=== PATIENT | male | born 1940 | race Caucasian/White ===

== ENCOUNTER 2019-03-15 15:44 | Inpatient (IN) | payer OTHER ==
[~2019-03-15] VITALS: Ht 175.3 cm; Wt 53.3 kg
[2019-03-15] MEDS ORDERED: Magnesium 1GM/D5W 100ML PREMIX 200 ML IV ONE (15:47)
[2019-03-15] MEDS ORDERED: ALBUTEROL FS 2.5 MG/3 ML VIAL.NEB ONE (15:54)
[2019-03-15] MEDS ORDERED: IPRATROPIUM NEB FS 0.5 MG/2.5 ML AMPUL.NEB ONE (15:54)
[2019-03-15] MEDS ORDERED: ALBUTEROL FS 2.5 MG/3 ML VIAL.NEB CONTNEB ONE (16:00)
[2019-03-15] MEDS ORDERED: IPRATROPIUM NEB FS 0.5 MG/2.5 ML AMPUL.NEB NEB ONE (16:00)
[2019-03-15] MEDS ORDERED: Magnesium 1GM/D5W 100ML PREMIX 100 ML IV ONE ×2 (16:09)
[2019-03-15 16:12] LABS: BASOPHILS % (AUTO) 0.2 % (0.0-2.0); EOSINOPHILS % (AUTO) 0.5 % (0.0-6.0); HEMATOCRIT 42 % (39-51); HEMOGLOBIN 13.8 g/dL (13.5-17.5); LYMPHOCYTES # (AUTO) 0.8 /CMM (0.8-4.8); LYMPHOCYTES % (AUTO) 10.2 % (20.0-44.0); MEAN CORPUSCULAR HGB CONC 33 g/dl (31.0-36.0); MEAN CORPUSCULAR VOLUME 88 fL (80-96); MONOCYTES # (AUTO) 0.3 /CMM (0.1-1.30); MONOCYTES % (AUTO) 3.5 % (2.0-12.0); NEUTROPHILS % (AUTO) 85.6 % (43.0-81.0); PLATELET COUNT (AUTO) 156 /CMM (150-450); RED BLOOD CELL COUNT(AUTO) 4.77 MIL/uL (4.5-6.0); WHITE BLOOD COUNT (AUTO) 8.2 K/uL (4.3-11.0)
[2019-03-15 16:25] LABS: CARBON DIOXIDE 27 mmol/L (21-32); CHLORIDE 100 mmol/L (98-107); CREATININE 1.4 mg/dL (0.6-1.3); GLUCOSE 150 mg/dL (74-106); POTASSIUM 4.3 mmol/L (3.5-5.1); SODIUM SERUM 134 mmol/L (136-145); UREA NITROGEN, BLOOD 29 mg/dL (7-18)
[2019-03-15 16:38] LABS: B-TYPE NATRIURETIC PEPTIDE 838 PG/ML (0-125)
[2019-03-15] MEDS ORDERED: IRBE150T28 PO (17:32)
[2019-03-15] MEDS ORDERED: ASPI-605 PO (17:32)
[2019-03-15] MEDS ORDERED: ALBU8.5H8 IH (17:32)
[2019-03-15] MEDS ORDERED: FLUT1BLS6 IH (17:32)
[2019-03-15] MEDS ORDERED: METO25TA4 PO (17:32)
[2019-03-15] MEDS ORDERED: LEVO750T46 PO (17:32)
[2019-03-15 19:19] LABS: BILIRUBIN,DIRECT 0.2 mg/dL (0.0-0.2); BILIRUBIN,TOTAL 0.4 mg/dL (0.2-1.0)
[2019-03-15 20:15] LABS: ABG BASE EXCESS 0.9 mmol/L; ABG OXYGEN SATURATION 92.4 % (92.0-98.5); ABG PCO2 38.6 mmHg (35.0-45.0); ABG PH 7.431 (7.350-7.450); ABG PO2 60.3 mmHg (75.0-100.0); AaDO2 93.8 mmHg; COHb 0.5 % (0.5-1.5); MetHb 0.4 % (0.0-1.5); O2Hb 91.6 % (94.0-97.0); SITE, ABG Left Radial; VENT MODE, BG N/C 28%
[2019-03-15 21:30] VITALS: BP 134/67
[2019-03-15 22:00] VITALS: BP 134/67
[2019-03-15] MEDS ORDERED: ALBUTEROL FS 2.5 MG/0.5 ML VIAL.NEB NEB PRN (22:00)
[2019-03-15] MEDS ORDERED: IV NS 0.9% 500 ML IV ONE (22:00)
[2019-03-15] MEDS ORDERED: IPRATROPIUM NEB FS 0.5 MG/2.5 ML AMPUL.NEB NEB PRN (22:00)
[2019-03-15] MEDS: methylPREDNISolone SOD SUCC 40 MG/ML VIAL IV SCH (23:17)
[2019-03-15] MEDS ORDERED: CEFTRIAXONE 1 G VIAL ONE (23:29)
[2019-03-15] MEDS: CEFTRIAXONE 1 G in IV D5W 50 ML IV SCH (23:33)
[2019-03-15] MEDS ORDERED: AZITHROMYCIN 500 MG VIAL ONE (23:56)
[2019-03-16] VITALS: BP 107/62
[2019-03-16] MEDS: AZITHROMYCIN 500 MG in IV D5W 250 ML IV SCH ×2 (00:53→22:08)
[2019-03-16] MEDS: ALBUTEROL FS 2.5 MG/0.5 ML VIAL.NEB NEB SCH ×4 (02:14→20:00)
[2019-03-16] MEDS: IPRATROPIUM NEB FS 0.5 MG/2.5 ML AMPUL.NEB NEB SCH ×4 (02:14→20:00)
[2019-03-16 04:00] VITALS: BP 130/66
[2019-03-16] MEDS: methylPREDNISolone SOD SUCC 40 MG/ML VIAL IV SCH ×3 (05:21→20:54)
[2019-03-16 05:22] LABS: EOSINOPHILS % (AUTO) 0.1 % (0.0-6.0); HEMATOCRIT 43 % (39-51); HEMOGLOBIN 13.9 g/dL (13.5-17.5); LYMPHOCYTES # (AUTO) 0.3 /CMM (0.8-4.8); LYMPHOCYTES % (AUTO) 4.4 % (20.0-44.0); MEAN CORPUSCULAR HGB CONC 33 g/dl (31.0-36.0); MEAN CORPUSCULAR VOLUME 87 fL (80-96); MONOCYTES # (AUTO) 0.1 /CMM (0.1-1.30); MONOCYTES % (AUTO) 2.1 % (2.0-12.0); NEUTROPHILS # (AUTO) 6.1 /CMM (1.8-8.9); NEUTROPHILS % (AUTO) 93.4 % (43.0-81.0); PLATELET COUNT (AUTO) 152 /CMM (150-450); WHITE BLOOD COUNT (AUTO) 6.5 K/uL (4.3-11.0)
[2019-03-16 05:34] LABS: CALCIUM, SERUM 8.4 mg/dL (8.5-10.1); CREATININE 1.2 mg/dL (0.6-1.3); POTASSIUM 4.3 mmol/L (3.5-5.1)
[2019-03-16 08:00] VITALS: BP 118/70
[2019-03-16] MEDS: ASPIRIN EC 81 MG TABLET.DR PO SCH (08:55)
[2019-03-16 16:00] VITALS: BP 146/83
[2019-03-16 20:00] VITALS: BP 140/76
[2019-03-16 20:39] VITALS: BP 140/76
[2019-03-16] MEDS: CEFTRIAXONE 1 G in IV D5W 50 ML IV SCH (21:25)
[2019-03-17] VITALS: BP 152/85
[2019-03-17] MEDS: IPRATROPIUM NEB FS 0.5 MG/2.5 ML AMPUL.NEB NEB SCH ×4 (00:47→13:44)
[2019-03-17] MEDS: ALBUTEROL FS 2.5 MG/0.5 ML VIAL.NEB NEB SCH ×4 (00:47→13:44)
[2019-03-17 04:05] VITALS: BP 140/70
[2019-03-17] MEDS: methylPREDNISolone SOD SUCC 40 MG/ML VIAL IV SCH ×2 (05:25→13:00)
[2019-03-17 07:34] LABS: HEMATOCRIT 43 % (39-51); HEMOGLOBIN 13.9 g/dL (13.5-17.5); LYMPHOCYTES # (AUTO) 0.4 /CMM (0.8-4.8); LYMPHOCYTES % (AUTO) 6.1 % (20.0-44.0); MEAN CORPUSCULAR HGB CONC 33 g/dl (31.0-36.0); MEAN CORPUSCULAR VOLUME 87 fL (80-96); MONOCYTES # (AUTO) 0.5 /CMM (0.1-1.30); MONOCYTES % (AUTO) 7.1 % (2.0-12.0); NEUTROPHILS # (AUTO) 5.8 /CMM (1.8-8.9); NEUTROPHILS % (AUTO) 86.8 % (43.0-81.0); PLATELET COUNT (AUTO) 182 /CMM (150-450); RED BLOOD CELL COUNT(AUTO) 4.89 MIL/uL (4.5-6.0); WHITE BLOOD COUNT (AUTO) 6.6 K/uL (4.3-11.0)
[2019-03-17 07:50] LABS: CALCIUM, SERUM 8.8 mg/dL (8.5-10.1); CREATININE 0.9 mg/dL (0.6-1.3); POTASSIUM 4.1 mmol/L (3.5-5.1)
[2019-03-17 08:00] VITALS: BP 146/89
[2019-03-17] MEDS: ASPIRIN EC 81 MG TABLET.DR PO SCH (08:39)
[2019-03-17] MEDS ORDERED: PRED20TA PO (09:24)
[2019-03-17] MEDS ORDERED: IPRA3AMP23 IH (09:35)
[2019-03-18] MEDS ORDERED: PRED5TAB48 PO (20:20)
== END 2019-03-17 15:30 | disposition home health service (06) | DRG 189 ==
LOC: ER 15:45 → TELE 20:37 → MED 03-17 00:19 → TELE 03-17 00:22 → MED 03-17 08:46
PROVIDERS: ADMIT Internal Medicine; ATTEND Internal Medicine
DX: J96.21 Acute and chronic respiratory failure with hypoxia (principal); J44.1 Chronic obstructive pulmonary disease with (acute) exacerbation; N17.9 Acute kidney failure, unspecified; E87.2 Acidosis; Z87.891 Personal history of nicotine dependence; R55 Syncope and collapse; I95.9 Hypotension, unspecified; I10 Essential (primary) hypertension
CPT/HCPCS: 36415; 36600; 71045-TC; 80048-TC; 82247-TC; 82248-TC; 82803-TC; 83605-TC; 83880; 84484-TC; 85025-TC; 87040-TC; 87081-TC; 93307-TC; 94799-TC; G0378; J0456; J0696; J2920; J3475; J7030; J7040; J7050; J7060

== ENCOUNTER 2019-03-18 18:12 | Inpatient (IN) | payer OTHER ==
[~2019-03-18] VITALS: Ht 175.3 cm; Wt 50.3 kg
[2019-03-18] VITALS (7 sets, daily range): BP systolic 81–143; BP diastolic 54–86
[~2019-03-18 18:12] MED LIST: ALBU8.5H8 IH; ASPI-605 PO; FLUT1BLS6 IH; IPRA3AMP23 IH; IRBE150T28 PO; LEVO750T46 PO; METO25TA4 PO; PRED20TA PO
[2019-03-18] MEDS ORDERED: Magnesium 1GM/D5W 100ML PREMIX 200 ML IV ONE ×2 (18:21→18:30)
[2019-03-18] MEDS ORDERED: ALBUTEROL FS 2.5 MG/3 ML VIAL.NEB ONE (18:26)
[2019-03-18] MEDS ORDERED: IPRATROPIUM NEB FS 0.5 MG/2.5 ML AMPUL.NEB ONE (18:26)
[2019-03-18 18:30] LABS: BASOPHILS % (AUTO) 0.3 % (0.0-2.0); EOSINOPHILS % (AUTO) 0.1 % (0.0-6.0); HEMATOCRIT 47 % (39-51); HEMOGLOBIN 15.3 g/dL (13.5-17.5); LYMPHOCYTES # (AUTO) 1.1 /CMM (0.8-4.8); LYMPHOCYTES % (AUTO) 10.1 % (20.0-44.0); MEAN CORPUSCULAR HGB CONC 33 g/dl (31.0-36.0); MEAN CORPUSCULAR VOLUME 88 fL (80-96); MONOCYTES # (AUTO) 0.7 /CMM (0.1-1.30); MONOCYTES % (AUTO) 6.6 % (2.0-12.0); NEUTROPHILS # (AUTO) 9.1 /CMM (1.8-8.9); NEUTROPHILS % (AUTO) 82.9 % (43.0-81.0); PLATELET COUNT (AUTO) 244 /CMM (150-450); RED BLOOD CELL COUNT(AUTO) 5.34 MIL/uL (4.5-6.0)
[2019-03-18] MEDS ORDERED: IPRATROPIUM NEB FS 0.5 MG/2.5 ML AMPUL.NEB NEB ONE (18:30)
[2019-03-18] MEDS ORDERED: methylPREDNISolone SOD SUCC 125 MG/2ML VIAL ONE (18:30)
[2019-03-18] MEDS ORDERED: methylPREDNISolone SOD SUCC 125 MG/2ML VIAL IV ONE (18:30)
[2019-03-18] MEDS ORDERED: ALBUTEROL FS 2.5 MG/3 ML VIAL.NEB NEB ONE (18:30)
--- NOTE | 2019-03-18 18:30 | NUR ---
[id number], from home, c/o sob, 02 sat 91% on 4lpm via nc, Albuterol 5mg given on scene 02sat went up to 97%, Hx COPD, was d/c yesterday for same reason. Patient a/ox4, noted with labored breathing. RT at bedside.
[2019-03-18 18:37] LABS: CALCIUM, SERUM 9.4 mg/dL (8.5-10.1); CARBON DIOXIDE 32 mmol/L (21-32); CHLORIDE 103 mmol/L (98-107); CREATININE 0.9 mg/dL (0.6-1.3); GLUCOSE 201 mg/dL (74-106); POTASSIUM 4.3 mmol/L (3.5-5.1); SODIUM SERUM 141 mmol/L (136-145); UREA NITROGEN, BLOOD 25 mg/dL (7-18)
[2019-03-18 18:50] LABS: ALANINE AMINOTRANSFERASE 44 U/L (12-78); ALBUMIN 2.9 g/dL (3.4-5.0); ALKALINE PHOSPHATASE 160 U/L (46-116); ASPARTATE AMINOTRANSFERASE 54 U/L (15-37); B-TYPE NATRIURETIC PEPTIDE 2589 PG/ML (0-125); BILIRUBIN,DIRECT 0.2 mg/dL (0.0-0.2); BILIRUBIN,TOTAL 0.5 mg/dL (0.2-1.0); TOTAL PROTEIN, SERUM 7.5 g/dL (6.4-8.2)
[2019-03-18 18:50] LABS: ABG BASE EXCESS 1.8 mmol/L; ABG OXYGEN SATURATION 97.6 % (92.0-98.5); ABG PCO2 67.6 mmHg (35.0-45.0); ABG PH 7.276 (7.350-7.450); COHb 0.5 % (0.5-1.5); MetHb 0.4 % (0.0-1.5); O2Hb 96.7 % (94.0-97.0); SITE, ABG Left Radial; VENT MODE, BG MASK
--- NOTE | 2019-03-18 19:09 | NUR ---
REPORT RECEIVED FROM DANTE THIBODEAUX FOR JASON
[2019-03-18] MEDS ORDERED: PRED5TAB48 PO (20:20)
--- NOTE | 2019-03-18 20:28 | NUR ---
BED ASSIGNMENT 258
--- NOTE | 2019-03-18 20:39 | NUR ---
REPORT GIVEN TO DANTE WHITFIELD
--- NOTE | 2019-03-18 21:00 | NUR ---
CERTIFIED DIALYSIS TECHNICIANSCAFFOLDING HELPER NOTES RECEIVED PATIET FROM ER VIA RUBIO, PLACED ON BIPAP BY RT. PATIENT A/O X 3 ABLE TO VERBALIZE NEEDS, MADE COMFORTABLE. PATIENT BEING ADMITTED FOR COPD EXACERBATION. RIGHT FOREARM 18G, LEFT AC 20G. PATIENT ABLE TO UTILIZE URINAL. CALL LIGHT LEFT WITHIN EASY REACH, CELL PHONE WITH PATIENT. WILL MONITOR
[2019-03-18] MEDS ORDERED: METOPROLOL SUCCINATE 25 MG TAB.SR.24H PO SCH (21:30)
[2019-03-18] MEDS ORDERED: IPRATROPIUM NEB FS 0.5 MG/2.5 ML AMPUL.NEB NEB PRN (21:30)
[2019-03-18] MEDS ORDERED: FUROSEMIDE 40 MG TABLET PO SCH (21:30)
[2019-03-18] MEDS ORDERED: DILTIAZEM HCL CD 120 MG PO SCH (21:30)
[2019-03-18] MEDS: IPRATROPIUM NEB FS 0.5 MG/2.5 ML AMPUL.NEB NEB SCH (21:39)
[2019-03-18] MEDS: LEVOFLOXACIN (500MG) 500 MG TABLET PO SCH (22:09)
[2019-03-18] MEDS: ENOXAPARIN SODIUM 40 MG/0.4 ML DISP.SYRIN SQ SCH (22:10)
[2019-03-18] MEDS: methylPREDNISolone SOD SUCC 40 MG/ML VIAL IV SCH (22:10)
[2019-03-19] VITALS (34 sets, daily range): BP systolic 88–180; BP diastolic 60–113
--- NOTE | 2019-03-19 | NUR ---
TEMPORARY RECEPTIONIST NOTES BP AT THIS TIME 88/60, HR [address] FLORES NOTIFIED THAT BP HAS BEEN BORDERLINE LOW, AND THAT CARDIZEM AND LASIX WERE NOT ADMINISTERED. PER DR FLORES, DC LASIX AND CARDIZEM, AND GIVE 1 LITER NS BOLUS
[2019-03-19] MEDS ORDERED: IV NS 0.9% 1,000 ML IV ONE (00:30)
[2019-03-19] MEDS: IPRATROPIUM NEB FS 0.5 MG/2.5 ML AMPUL.NEB NEB SCH ×6 (01:38→23:04)
[2019-03-19 04:22] LABS: BASOPHILS % (AUTO) 0.1 % (0.0-2.0); HEMATOCRIT 39 % (39-51); HEMOGLOBIN 12.8 g/dL (13.5-17.5); LYMPHOCYTES # (AUTO) 0.2 /CMM (0.8-4.8); LYMPHOCYTES % (AUTO) 4.5 % (20.0-44.0); MEAN CORPUSCULAR HGB CONC 33 g/dl (31.0-36.0); MEAN CORPUSCULAR VOLUME 88 fL (80-96); MONOCYTES # (AUTO) 0.2 /CMM (0.1-1.30); MONOCYTES % (AUTO) 3.8 % (2.0-12.0); NEUTROPHILS # (AUTO) 4.4 /CMM (1.8-8.9); NEUTROPHILS % (AUTO) 91.6 % (43.0-81.0); PLATELET COUNT (AUTO) 202 /CMM (150-450); RED BLOOD CELL COUNT(AUTO) 4.46 MIL/uL (4.5-6.0); WHITE BLOOD COUNT (AUTO) 4.8 K/uL (4.3-11.0)
[2019-03-19 04:27] LABS: CALCIUM, SERUM 8.2 mg/dL (8.5-10.1); CREATININE 0.9 mg/dL (0.6-1.3); POTASSIUM 4.3 mmol/L (3.5-5.1)
--- NOTE | 2019-03-19 07:00 | NUR ---
CURING PICKLING PACKER CLOSING NOTES PATIENT RESTING IN BED, CONTINUES ON BIPAP, DENIES ANY PAIN. BP STABLE AFTER 1 LITER BOLUS. WILL ENDORSE THE PATIENT TO THE AM SHIFT NURSE FOR CONTINUITY OF CARE
--- NOTE | 2019-03-19 07:40 | NUR ---
ICU/RN: INITIAL NOTES,AM RECEIVED REPORT FROM NIGHT NURSE. PT ALERT AWAKE, ON BIPAP SETTINGS ORDERED BY MD. PT TOLERATING WELL. ABG WILL BE DONE THIS AM. PT SINUS ON TELE. URINAL AT BEDSIDE. SKIN INTACT. PIV'S PATENT AND INTACT, NO S/S OF INFECTION OR INFILTRATION NOTED. ALL NEEDS WILL BE ATTENDED TO, SAFETY MEASURES TAKEN, BED IN LOW POSITION, SIDE RAILS UP, CALL LIGHT WITHIN REACH.
[2019-03-19 08:44] LABS: ABG BASE EXCESS 5.7 mmol/L; ABG OXYGEN SATURATION 98.1 % (92.0-98.5); ABG PCO2 50.9 mmHg (35.0-45.0); AaDO2 92.7 mmHg; COHb 0.1 % (0.5-1.5); MetHb 0.4 % (0.0-1.5); O2Hb 97.6 % (94.0-97.0); SITE, ABG Right Radial; VENT MODE, BG 5L N/C
[2019-03-19] MEDS: methylPREDNISolone SOD SUCC 40 MG/ML VIAL IV SCH ×3 (08:56→17:05)
[2019-03-19] MEDS: ASPIRIN EC 81 MG TABLET.DR PO SCH (08:57)
--- NOTE | 2019-03-19 09:00 | NUR ---
ICU/RN: ABG DONE, RESULTS RELAYED TO MD. PER MD PT OFF BIPAP, PLACED ON 1 LITER NASAL CANULA, NO DISTRESS, TOLERATING WELL. WILL CONTINUE TO MONITOR.
[2019-03-19] MEDS: ALBUTEROL HALF STRENGTH 1.25 MG/3 ML VIAL.NEB NEB SCH ×5 (10:00→23:05)
[2019-03-19] MEDS: AMLODIPINE BESYLATE 5 MG TABLET PO SCH (17:06)
[2019-03-19] MEDS: ENSURE ENLIVE 237 ML LIQUID (VANILLA) PO SCH (17:08)
--- NOTE | 2019-03-19 17:45 | NUR ---
ICU/RN: REPORT ENDORSED TO ASHLIE HOWELL. PT TRANSFERRED TO [facility] VIA ACLS GUIDELINES. ALL BELONGINGS SENT WITH PT. ON NASAL CANULA, NO DISTRESS. REPORT ENDORSED FOR JASON.
--- NOTE | 2019-03-19 17:45 | NUR ---
OIL PIT ATTENDANT NOTE RECEIVED REPORT FROM HOLLY RN FROM ICU.PATIENT RECEIVED IN ROOM 115-2.AXOX4.ABLE TO MAKE NEEDS KNOWN.MILD SOB WITH STABLE O2 SAT OF 94% WITH 1L O2 VIA NASAL CANULA.ON TELE MONITOR ST HR 104.IV LINES ARE INTACT AND PATENT.BED IS LOCKED AND IN LOW POSITION.CALL LIGHT IN REACH.BED ALARM ON .SRX3.WILL CONTINUE TO MONITOR.FAMILY @ BEDSIDE.
--- NOTE | 2019-03-19 18:36 | NUR ---
PHUONG RN NOTE PATIENT BP 186/113. MADE AWARE.GOT NEW ORDER FOR CLONIDINE PRN AND PATIENT C/O STUFFY NOSE GOT AN ORDER FOR FLONASE .WILL CONTINUE TO MONITOR.PATIENT NOT C/O ANY HEADACHE.
[2019-03-19] MEDS ORDERED: CLONIDINE HCL 0.1 MG TABLET PO PRN (19:00)
--- NOTE | 2019-03-19 19:15 | NUR ---
PHUONG RN OPENING NOTE PATIENT IN BED WITH FRIEND AT BEDSIDE. PT NOTED TO HAVE SOB SATURATING 95-96% WITH 5 L O2 VIA NASAL CANULA. TITRATED O2 TO 2 LITERS. IV LINES ARE INTACT AND PATENT.SAFETY AND ASPIRATION MEASURES IN PLACE. PT ON TELE MONITOR ST HR 99-101. WILL CONTINUE TO MONITOR
--- NOTE | 2019-03-19 19:18 | NUR ---
PHUONG RN NOTE .PATIENT AXO.IN BED.FAMILY @ BEDSIDE.MILD SOB NOTED.SATURATING 92-94% WITH 4L O2 VIA NASAL CANULA.IV LINES ARE INTACT AND PATENT.SAFETY AND ASPIRATION MEASURES IN PLACE.PRN CLONIDINE GIVEN FOR ELEVATED BP.ON TELE MONITOR ST HR 103.REPORT GIVEN TO LEO HOWELL FOR JASON
[2019-03-19] MEDS: FLUTICASONE PROPIONATE 16 GM BOTTLE NS SCH (19:19)
--- NOTE | 2019-03-19 20:50 | NUR ---
RN NOTES, PATIENT NOTED WITH INCREASED HR IN 120S, WENT TO CHECK PATIENT AND PATIENT IN DISTRESS WITH LABORED RESPIRATIONS USING ACCESSORY MUSCLES, OXYGEN SATURATION 92-94%, CALLED RT TO PUT PATIENT ON BIPAP, AND HELP PATIENT RELIEVE THE SYMPTOMS.
--- NOTE | 2019-03-19 20:58 | NUR ---
RT NOTE PLACED PT ON BIPAP PER RN REQUEST. Addendum: 03/20/19 at 0500 by JUAN FRANCISCO SANDRA RT Amended: Links added.
[2019-03-19] MEDS: LEVOFLOXACIN (500MG) 500 MG TABLET PO SCH (21:03)
[2019-03-19] MEDS: ENOXAPARIN SODIUM 40 MG/0.4 ML DISP.SYRIN SQ SCH (21:09)
--- NOTE | 2019-03-19 22:00 | NUR ---
RN NOTES, PATIENT ASLEEP ON BIPAP AT THIS TIME, WITH HR 90S AT THIS TIME, PATIENT SEEM COMFORTABLE AND NO RESPIRATORY DISTRESS NOTED AT THIS TIME, WILL CONTINUE TO MONITOR CLOSELY.
[2019-03-20] VITALS (10 sets, daily range): BP systolic 126–169; BP diastolic 51–93
[2019-03-20] MEDS: IPRATROPIUM NEB FS 0.5 MG/2.5 ML AMPUL.NEB NEB SCH ×6 (03:03→23:17)
[2019-03-20] MEDS: ALBUTEROL HALF STRENGTH 1.25 MG/3 ML VIAL.NEB NEB SCH ×6 (03:03→23:17)
--- NOTE | 2019-03-20 05:45 | NUR ---
RT NOTE REMOVED PT FROM BIPAP. PLACED ON 2LPM NC HR88 SPO2 97-98%. RN NOTIFIED OF REMOVAL. NO DISTRESS NOTED.
--- NOTE | 2019-03-20 06:54 | NUR ---
RN NOTES, PATIENT AWAKE A/OX4 ABLE TO VERBALIZED NEEDS AND CONCERNS, BREATHING EVEN AND UNLABORED, STAYED ALL NIGHT ON BIPAP OFF AT 0545, BREATHING NOTED MUCH MUCH BETTER, NO DISTRESS NOTED, WITH OPTIMAL O2 SAT LEVEL 92-96% AT THIS TIME, WITH HR IN 90S AT THIS TIME, DURING THE NIGHT WHILE SLEEPING HR EVEN NSR WITH HR 70S-80S, BED LOCKED AND IN LOWEST POSITION, WILL HAVE CT CHEST TODAY, PATIENT AWARE AND VERBALIZED UNDERSTANDING, WILL ENDORSED CONTINUITY OF CARE TO ONCOMING NURSE.
--- NOTE | 2019-03-20 07:10 | NUR ---
RN INITIAL NOTE PATIENT IN BED, AWAKE AND ALERTX4. NO COMPLAINS OF ANY PAIN NOR SOB AT THIS TIME. ON TELE MONITOR, SR. ON 2L NC. WAS ON BIPAP LAST NIGHT. HAS A RFA #18 AND LAC #20, BOTH SL. BED LOCKED AND IN LOWEST POSITION. CALL LIGHT WITHIN REACH. WILL CONTINUE TO MONITOR CLOSELY
[2019-03-20] MEDS: FLUTICASONE PROPIONATE 16 GM BOTTLE NS SCH ×2 (08:05→16:45)
[2019-03-20] MEDS: ASPIRIN EC 81 MG TABLET.DR PO SCH (08:05)
[2019-03-20] MEDS: ENSURE ENLIVE 237 ML LIQUID (VANILLA) PO SCH ×3 (08:05→16:43)
[2019-03-20] MEDS: AMLODIPINE BESYLATE 5 MG TABLET PO SCH ×2 (08:06→08:29)
[2019-03-20] MEDS: methylPREDNISolone SOD SUCC 40 MG/ML VIAL IV SCH ×3 (08:06→16:44)
--- NOTE | 2019-03-20 08:29 | NUR ---
RN NOTE PER DR FLORES, INCREASE NORVASC TO 10MG FROM 5MG PO. ALREADY ADMINISTERED THE 5MG THIS AM. PER PHARMACY, ORDER A ONE TIME DOSE OF 5MG AND NON-ADMIN THE 10MG. ORDER CARRIED OUT.
[2019-03-20] MEDS ORDERED: DEXTROSE 50%-WATER 50 ML DISP.SYRIN IV PRN (08:30)
[2019-03-20] MEDS ORDERED: AMLODIPINE BESYLATE 5 MG TABLET PO ONE (09:00)
--- NOTE | 2019-03-20 09:30 | NUR ---
RN NOTE PATIENT WAS PICKED UP FOR CT CHEST VIA WHEELCHAIR. VSS, NO COMPLAINS OF ANY PAIN NOR SOB
[2019-03-20] MEDS: BLOOD SUGAR DIAGNOSTIC 1 EACH STRIP VI SCH ×3 (11:53→21:48)
[2019-03-20] MEDS: INSULIN REGULAR, HUMAN 100 UNIT/ML 3 ML VIAL SQ PRN ×3 (11:56→21:50)
--- NOTE | 2019-03-20 15:25 | NUR ---
RN NOTE PATIENT'S DAUGHTER, ENDY, CALLED. PER PATIENT OK TO DISCLOSE INFORMATION TO ENDY.
--- NOTE | 2019-03-20 18:50 | NUR ---
RN CLOSING NOTE PATIENT, AWAKE AND ALERT. DAUGHTER ENDY AT BEDSIDE. NO COMPLAINS OF ANY DISTRESS AT THIS TIME. ALL MEDS GIVEN. ALL NEEDS MET. ON 2L NC, SATING WELL. ON TELE MONITOR, SR/ST. NO BM NOTED. INSULIN COVERAGE GIVEN. ALL IV SITE PATENT, INTACT AND FLUSHING WELL. WILL ENDORSE TO NOC SHIFT FOR JASON
--- NOTE | 2019-03-20 20:09 | NUR ---
RT NOTES PT RECEIVED ON NC 2LM O2. PT PLACED ON BIPAP ON ORDERED NOC SETTINGS. BREATHING TX GIVEN. NO ADVERSE REACTION. AMBUBAG AT BEDSIDE. ALARMS SET AND AUDIBLE. WILL CONT TO MONITOR. Addendum: 03/21/19 at 0009 by SATNAM CORDERO RT Amended: Links added.
[2019-03-20] MEDS: LEVOFLOXACIN (500MG) 500 MG TABLET PO SCH (20:54)
[2019-03-20] MEDS: ENOXAPARIN SODIUM 40 MG/0.4 ML DISP.SYRIN SQ SCH (20:55)
--- NOTE | 2019-03-20 21:04 | NUR ---
TELE/ OPENING NOTE RECEIVED PATIENT A/O X4. PATIENT ON 2L OF O2 SHOWING SIGNS OF SOB. INCREASED O2 TO 3L. RT AT BEDSIDE WITH BREATHING TREATMENT ADMINISTERED. PATIENT ON THE MONITOR SHOWING SINUS RHYTHM HR IN THE 90'S. NO OTHER SIGN OF ANY DISTRESS. PATIENT HAS RFA #18G AND LAC #20 BOTH S/L, FLUSHED WITH NO SIGN OF INFILTRATION. PATIENT IS ON AMBULATORY WITH URINAL AT BEDSIDE. ALL SAFETY PRECAUTIONS HAVE BEEN APPLIED. WILL CONTINUE TO MONITOR PATIENT THROUGHOUT SHIFT.
[2019-03-21] VITALS: BP 123/69
[2019-03-21] MEDS: IPRATROPIUM NEB FS 0.5 MG/2.5 ML AMPUL.NEB NEB SCH ×6 (03:15→22:50)
[2019-03-21] MEDS: ALBUTEROL HALF STRENGTH 1.25 MG/3 ML VIAL.NEB NEB SCH ×6 (03:15→22:50)
[2019-03-21 04:00] VITALS: BP 133/82
--- NOTE | 2019-03-21 07:38 | NUR ---
RN CLOSING NOTE PATIENT, AWAKE AND ALERT. NO COMPLAINS OF ANY DISTRESS AT THIS TIME.. ALL NEEDS MET. ON 2L NC, SATING WELL. ON TELE MONITOR, SR/ST. NO BM NOTED. ALL IV SITE PATENT, INTACT AND FLUSHING WELL.SAFETY MEASURED MAINTAIN, CALL LIGHT WITHIN REACH, BED ON LOWEST POSSIBLE POSITION, SIDERAILS UP X3 WILL ENDORSE TO AM SHIFT NURSE FOR JASON
[2019-03-21 07:48] LABS: BASOPHILS % (AUTO) 0.1 % (0.0-2.0); HEMATOCRIT 43 % (39-51); LYMPHOCYTES # (AUTO) 0.4 /CMM (0.8-4.8); LYMPHOCYTES % (AUTO) 5.6 % (20.0-44.0); MEAN CORPUSCULAR HGB CONC 33 g/dl (31.0-36.0); MEAN CORPUSCULAR VOLUME 86 fL (80-96); MONOCYTES # (AUTO) 0.6 /CMM (0.1-1.30); MONOCYTES % (AUTO) 9.2 % (2.0-12.0); NEUTROPHILS % (AUTO) 85.1 % (43.0-81.0); PLATELET COUNT (AUTO) 271 /CMM (150-450); RED BLOOD CELL COUNT(AUTO) 4.93 MIL/uL (4.5-6.0)
[2019-03-21 07:56] LABS: CALCIUM, SERUM 8.9 mg/dL (8.5-10.1); POTASSIUM 4.3 mmol/L (3.5-5.1)
[2019-03-21 08:00] VITALS: BP_SYST 143; BP_SYST 170; BP_DIAS 83; BP_DIAS 89
[2019-03-21] MEDS: BLOOD SUGAR DIAGNOSTIC 1 EACH STRIP VI SCH ×4 (08:25→21:36)
[2019-03-21] MEDS: methylPREDNISolone SOD SUCC 40 MG/ML VIAL IV SCH ×3 (08:26→17:52)
[2019-03-21] MEDS: FLUTICASONE PROPIONATE 16 GM BOTTLE NS SCH ×2 (08:26→17:52)
[2019-03-21] MEDS: ASPIRIN EC 81 MG TABLET.DR PO SCH (08:26)
[2019-03-21] MEDS: ENSURE ENLIVE 237 ML LIQUID (VANILLA) PO SCH ×3 (08:27→17:52)
[2019-03-21] MEDS: AMLODIPINE BESYLATE 5 MG TABLET PO SCH (08:35)
[2019-03-21] MEDS: INSULIN REGULAR, HUMAN 100 UNIT/ML 3 ML VIAL SQ PRN ×2 (12:46→18:08)
[2019-03-21 16:00] VITALS: BP 151/80
[2019-03-21 18:28] VITALS: BP 151/80
--- NOTE | 2019-03-21 19:10 | NUR ---
RN OPENING NOTE RECEIVED PATIENT IN BED RESTING WITH HOB ELEVATED. A&O X4. ABLE TO MAKE NEEDS KNOWN. BREATHING EVEN AND NON LABORED. NO SOB NOTED. IN NO APPARENT DISTRESS NOTED AT THIS TIME. BED IS LOWERED TO LOW POSITION AND LOCKED FOR SAFETY. CALL LIGHT IS WITHIN REACH. WILL CONTINUE TO MONITOR.
--- NOTE | 2019-03-21 21:05 | NUR ---
RT NOTES. PT RECEIVED ON NC 2LM O2. PT PLACED ON BIPAP ON ORDERED NOC SETTINGS. AMBUBAG AT BEDSIDE. ALARMS SET AND AUDIBLE. WILL CONT TO MONITOR.
[2019-03-21] MEDS: LEVOFLOXACIN (500MG) 500 MG TABLET PO SCH (21:27)
[2019-03-21] MEDS: ENOXAPARIN SODIUM 40 MG/0.4 ML DISP.SYRIN SQ SCH (21:28)
[2019-03-21] MEDS: *INSULIN REGULAR(HUMULIN R)HUM 100 UNIT/ML VIAL SQ PRN (21:38)
[2019-03-22] MEDS: IPRATROPIUM NEB FS 0.5 MG/2.5 ML AMPUL.NEB NEB SCH ×6 (03:11→23:44)
[2019-03-22] MEDS: ALBUTEROL HALF STRENGTH 1.25 MG/3 ML VIAL.NEB NEB SCH ×6 (03:11→23:44)
[2019-03-22 04:00] VITALS: BP 118/70
--- NOTE | 2019-03-22 05:59 | NUR ---
RT NOTE REMOVED PT FROM BIPAP. PLACED ON 3LPM NC. SPO2 96-97%. PT AWAKE AND ALERT. RN MOOKIE NOTIFIED. NO SOB OR DISTRESS NOTED.
--- NOTE | 2019-03-22 06:59 | NUR ---
MANAGER MACHINE CLOSING NOTE PATIENT IS IN BED RESTING WITH HOB ELEVATED. A&O X4. ON BIPAP AND TOLERATED WELL. IV LINES ON RIGHT FOREARM AND LEFT ANTECUBITAL KEPT PATENT. DUE MEDS GIVEN AND TOLERATED WELL. PATIENT IS KEPT CLEAN, DRY, AND COMFORTABLE. WILL ENDORSE TO AM SHIFT RN FOR CONTINUATION OF CARE.
[2019-03-22 07:30] VITALS: BP 160/86
[2019-03-22] MEDS: BLOOD SUGAR DIAGNOSTIC 1 EACH STRIP VI SCH ×4 (08:00→22:23)
[2019-03-22 08:04] LABS: BASOPHILS % (AUTO) 0.1 % (0.0-2.0); HEMATOCRIT 45 % (39-51); HEMOGLOBIN 14.4 g/dL (13.5-17.5); LYMPHOCYTES # (AUTO) 0.5 /CMM (0.8-4.8); LYMPHOCYTES % (AUTO) 4.1 % (20.0-44.0); MEAN CORPUSCULAR HGB CONC 32 g/dl (31.0-36.0); MEAN CORPUSCULAR VOLUME 87 fL (80-96); MONOCYTES # (AUTO) 0.8 /CMM (0.1-1.30); MONOCYTES % (AUTO) 7.3 % (2.0-12.0); NEUTROPHILS # (AUTO) 10.2 /CMM (1.8-8.9); NEUTROPHILS % (AUTO) 88.5 % (43.0-81.0); PLATELET COUNT (AUTO) 313 /CMM (150-450); RED BLOOD CELL COUNT(AUTO) 5.14 MIL/uL (4.5-6.0); WHITE BLOOD COUNT (AUTO) 11.5 K/uL (4.3-11.0)
[2019-03-22] MEDS: ASPIRIN EC 81 MG TABLET.DR PO SCH (08:40)
[2019-03-22] MEDS: FLUTICASONE PROPIONATE 16 GM BOTTLE NS SCH ×2 (08:41→16:54)
[2019-03-22] MEDS: AMLODIPINE BESYLATE 5 MG TABLET PO SCH (08:41)
[2019-03-22] MEDS: methylPREDNISolone SOD SUCC 40 MG/ML VIAL IV SCH (08:42)
[2019-03-22] MEDS: ENSURE ENLIVE 237 ML LIQUID (VANILLA) PO SCH ×3 (08:46→16:54)
[2019-03-22 09:02] LABS: CALCIUM, SERUM 8.9 mg/dL (8.5-10.1); CREATININE 1.1 mg/dL (0.6-1.3); POTASSIUM 4.6 mmol/L (3.5-5.1)
[2019-03-22 10:46] LABS: ABG PCO2 48.8 mmHg (35.0-45.0); ABG PH 7.429 (7.350-7.450); ABG PO2 58.7 mmHg (75.0-100.0); AaDO2 112.4 mmHg; COHb 0.6 % (0.5-1.5); MetHb 0.4 % (0.0-1.5); O2Hb 90.1 % (94.0-97.0); SITE, ABG Left Radial; VENT MODE, BG NASAL CANNULA
[2019-03-22] MEDS: INSULIN REGULAR, HUMAN 100 UNIT/ML 3 ML VIAL SQ PRN ×3 (11:24→22:21)
[2019-03-22 12:00] VITALS: BP 130/73
--- NOTE | 2019-03-22 19:19 | NUR ---
MS/RN CLOSING NOTES PATIENT CONTINUES TO REMAIN IN STABLE CONDITION THROUGHOUT THE SHIFT. PROVIDED COMFORT AND SAFETY. NO PAIN OR ACUTE DISTRESS AT THIS TIME. RESPIRATION EVEN AND UNLABORED. SKIN IS DRY WARM TO TOUCH. PATIENT ABLE TO TOLERATE MEALS AND MEDS WELL. ALL NEEDS ANTICIPATED. CALL LIGHT WITHIN REACHED. BED LOCKED AND IN LOWEST POSITION. SAFETY MAINTAINED. WILL CONTINUE TO MONITOR CLOSELY. ENDORSED TO PM NURSE FOR JASON.
--- NOTE | 2019-03-22 19:46 | NUR ---
PHUONG/RN RECEIVED PATIENT IN BED AWAKE, ALERT, ORIENTED, COMFORTABLE, NO DISTRESS NOTED, CALL LIGHT IN REACH, WILL MONITOR.
[2019-03-22 20:00] VITALS: BP 137/77
[2019-03-22 20:13] VITALS: BP 137/77
[2019-03-22] MEDS: LEVOFLOXACIN (500MG) 500 MG TABLET PO SCH (21:28)
[2019-03-22] MEDS: ENOXAPARIN SODIUM 40 MG/0.4 ML DISP.SYRIN SQ SCH (21:30)
--- NOTE | 2019-03-22 21:55 | NUR ---
PHUONG/RN PATIENT WAS PLACED ON BIPAP BY RT. WILL CONTINUE TO MONITOR.
[2019-03-23 04:00] VITALS: BP 143/72
[2019-03-23] MEDS: IPRATROPIUM NEB FS 0.5 MG/2.5 ML AMPUL.NEB NEB SCH ×5 (04:20→20:19)
[2019-03-23] MEDS: ALBUTEROL HALF STRENGTH 1.25 MG/3 ML VIAL.NEB NEB SCH ×5 (04:21→20:19)
--- NOTE | 2019-03-23 06:23 | NUR ---
PHUONG/RN PATIENT IS AWAKE, COMFORTABLE, NO DISTRESS NOTED, BIPAP ON, ALL NEEDS ATTENDED AT THIS TIME, WILL CONTINUE TO MONITOR.
[2019-03-23] MEDS: BLOOD SUGAR DIAGNOSTIC 1 EACH STRIP VI SCH ×4 (07:22→21:34)
--- NOTE | 2019-03-23 07:28 | NUR ---
pt. placed on nasal cannula @ 2lpm o2 flow Addendum: 03/23/19 at 0728 by KAT FERRO RT Amended: Links added.
[2019-03-23 08:00] VITALS: BP_SYST 114; BP_SYST 123; BP_DIAS 70; BP_DIAS 73
[2019-03-23] MEDS: ASPIRIN EC 81 MG TABLET.DR PO SCH (09:09)
[2019-03-23] MEDS: methylPREDNISolone SOD SUCC 40 MG/ML VIAL IV SCH (09:09)
[2019-03-23] MEDS: AMLODIPINE BESYLATE 5 MG TABLET PO SCH (09:10)
[2019-03-23] MEDS: ENSURE ENLIVE 237 ML LIQUID (VANILLA) PO SCH ×3 (09:11→17:18)
[2019-03-23] MEDS: FLUTICASONE PROPIONATE 16 GM BOTTLE NS SCH ×2 (09:12→17:18)
--- NOTE | 2019-03-23 10:00 | NUR ---
PT. IS AWAKE AND ALERT PLACED ON HIGH FLOW DUE T0 84% SPO2 ON NASAL CANNULA. RN NOTIFIED ON CHANGES. Addendum: 03/23/19 at 1119 by KAT FERRO RT Amended: Links added.
[2019-03-23] MEDS: INSULIN REGULAR, HUMAN 100 UNIT/ML 3 ML VIAL SQ PRN ×2 (11:46→17:19)
[2019-03-23 16:00] VITALS: BP_SYST 116; BP_SYST 122; BP_DIAS 71; BP_DIAS 88
--- NOTE | 2019-03-23 18:47 | NUR ---
MS/RN CLOSING NOTES PATIENT CONTINUES TO REMAIN IN STABLE CONDITION THROUGHOUT THE SHIFT. PROVIDED COMFORT AND SAFETY. NO PAIN OR ACUTE DISTRESS AT THIS TIME. RESPIRATION EVEN AND UNLABORED. PATIENT CONTINUES ON HIGH FLOW O2. TOLERATING WELL. SKIN IS DRY WARM TO TOUCH. PATIENT ABLE TO TOLERATE MEALS AND MEDS WELL. ALL NEEDS ANTICIPATED. CALL LIGHT WITHIN REACHED. BED LOCKED AND IN LOWEST POSITION. SAFETY MAINTAINED. WILL CONTINUE TO MONITOR CLOSELY. ENDORSED TO PM NURSE FOR JASON.
--- NOTE | 2019-03-23 19:37 | NUR ---
MS/RN OPENING NOTES RECEIVED PATIENT IN BED, AWAKE, ALERT X3, ABLE TO VERBALIZE NEEDS, COOPERATIVE AND RESPONSIVE TO CARE, FRIEND AT BEDSIDE, ON HIGH FLOW OXYGEN WITH RATE TAPERED DOWN TO 55. USES URINAL, SKIN WARM TO TOUCH, SKIN INTACT MONITORING FOR SOB AND HYPO/HYPERGLYCEMIA. BED LOCKED, CALL LIGHTS WITHIN REACH.
[2019-03-23 20:00] VITALS: BP 123/69
[2019-03-23] MEDS: LEVOFLOXACIN (500MG) 500 MG TABLET PO SCH (20:50)
[2019-03-23] MEDS: ENOXAPARIN SODIUM 40 MG/0.4 ML DISP.SYRIN SQ SCH (20:52)
[2019-03-23] MEDS: *INSULIN REGULAR(HUMULIN R)HUM 100 UNIT/ML VIAL SQ PRN (21:40)
[2019-03-24] MEDS: ALBUTEROL HALF STRENGTH 1.25 MG/3 ML VIAL.NEB NEB SCH ×7 (00:03→22:41)
[2019-03-24] MEDS: IPRATROPIUM NEB FS 0.5 MG/2.5 ML AMPUL.NEB NEB SCH ×7 (00:03→22:41)
[2019-03-24 00:34] VITALS: BP 123/69
[2019-03-24 04:00] VITALS: BP_SYST 109; BP_SYST 114; BP_DIAS 55; BP_DIAS 63
--- NOTE | 2019-03-24 06:25 | NUR ---
106-1 MS/RN CLOSING NOTES PATIENT ABLE TO SLEEP FEW HOURS.ON HIGH FLOW OXYGEN WITH RT TREATMENT, ATTENDED TO ALL NEEDS. WILL ENDORSE TO AM RN FOR JASON. BED LOCKED, CALL LIGHTS WITHIN REACH. ALERT, ORIENTED X3.
[2019-03-24] MEDS: BLOOD SUGAR DIAGNOSTIC 1 EACH STRIP VI SCH ×4 (07:30→22:50)
--- NOTE | 2019-03-24 07:30 | NUR ---
was endorsed by PM Rn only to provided info to family only- Daughters only- no friends - just familyu
--- NOTE | 2019-03-24 07:30 | NUR ---
RECEIVED BEDSIDE SBAR FROM PM RN - SAFETY PRECAUTIONS IN PLACE- VITALS STABLE - RT AND BREATING TX NEEDED AND IN PROGRESS TO WORK WITH PATIENT - WILL CONTINUE TO MONITOR REPORT AND RECORD
[2019-03-24 08:00] VITALS: BP 144/78
[2019-03-24] MEDS: methylPREDNISolone SOD SUCC 40 MG/ML VIAL IV SCH ×3 (08:32→16:41)
[2019-03-24] MEDS: ASPIRIN EC 81 MG TABLET.DR PO SCH (08:32)
[2019-03-24] MEDS: AMLODIPINE BESYLATE 5 MG TABLET PO SCH (08:33)
[2019-03-24] MEDS: ENSURE ENLIVE 237 ML LIQUID (VANILLA) PO SCH ×3 (08:38→17:00)
[2019-03-24] MEDS: FLUTICASONE PROPIONATE 16 GM BOTTLE NS SCH ×2 (08:39→16:44)
[2019-03-24 10:18] LABS: ABG BASE EXCESS 6.7 mmol/L; ABG OXYGEN SATURATION 90.7 % (92.0-98.5); ABG PCO2 53.2 mmHg (35.0-45.0); ABG PH 7.412 (7.350-7.450); ABG PO2 58.2 mmHg (75.0-100.0); AaDO2 383.7 mmHg; COHb 0.4 % (0.5-1.5); MetHb 0.2 % (0.0-1.5); O2Hb 90.2 % (94.0-97.0); SITE, ABG Left Radial; VENT MODE, BG HFNC
[2019-03-24 16:00] VITALS: BP 140/69
[2019-03-24] MEDS: *INSULIN REGULAR(HUMULIN R)HUM 100 UNIT/ML VIAL SQ PRN ×2 (16:42→23:07)
--- NOTE | 2019-03-24 19:18 | NUR ---
care endorsed to pm rn - safety precautions in place- will continue to monitor report and record
--- NOTE | 2019-03-24 19:30 | NUR ---
MS RN NOTES PATIENT IN BED, AWAKE, ALERT AND ORIENTED X 3. VISITOR AT BESIDE. BREATHING EVEN AND UNLABORED ON HI FLOW 4L. SHOWS NO SIGNS OF ACUTE RESPIRATORY DISTRESS, NO ACUTE PAIN. IV ON RFA #18G IS CLEAN DRY AND INTACT. SHOWS NO SIGNS OF INFILTRATION, NO REDNESS. SAFETY PRECAUTIONS IN PLACE. BED IN LOWEST POSITION, LOCKED, AND CALL LIGHT KEPT WITHIN REACH. WILL CONTINUE TO MONITOR.
[2019-03-24 20:00] VITALS: BP 130/75
[2019-03-24] MEDS: ENOXAPARIN SODIUM 40 MG/0.4 ML DISP.SYRIN SQ SCH (21:19)
[2019-03-25] MEDS: ALBUTEROL HALF STRENGTH 1.25 MG/3 ML VIAL.NEB NEB SCH ×6 (03:36→23:21)
[2019-03-25] MEDS: IPRATROPIUM NEB FS 0.5 MG/2.5 ML AMPUL.NEB NEB SCH ×6 (03:37→23:21)
[2019-03-25 04:00] VITALS: BP 125/75
--- NOTE | 2019-03-25 05:31 | NUR ---
PATIENT RECEIVED ON HIGH FLOW O2 60L 60%, TOLERATING WITH NO DISTRESS/SOB NOTED. GIVEN HHN TREATMENTS WITH NO ADVERSE REACTIONS. AMBU BAG AT BEDSIDE. PULSE OXIMETER ALARM AUDIBLE AND VISIBLE. WATER RESERVOIR FOR HUMIDIFICATION CHANGED. Addendum: 03/25/19 at 0534 by CESAR LEONARD RT Amended: Links added.
[2019-03-25 06:21] LABS: HEMATOCRIT 45 % (39-51); HEMOGLOBIN 14.4 g/dL (13.5-17.5); LYMPHOCYTES # (AUTO) 0.3 /CMM (0.8-4.8); LYMPHOCYTES % (AUTO) 1.7 % (20.0-44.0); MEAN CORPUSCULAR HGB CONC 32 g/dl (31.0-36.0); MEAN CORPUSCULAR VOLUME 88 fL (80-96); MONOCYTES # (AUTO) 0.8 /CMM (0.1-1.30); MONOCYTES % (AUTO) 4.6 % (2.0-12.0); NEUTROPHILS # (AUTO) 15.7 /CMM (1.8-8.9); NEUTROPHILS % (AUTO) 93.7 % (43.0-81.0); PLATELET COUNT (AUTO) 327 /CMM (150-450); RED BLOOD CELL COUNT(AUTO) 5.14 MIL/uL (4.5-6.0); WHITE BLOOD COUNT (AUTO) 16.8 K/uL (4.3-11.0)
[2019-03-25 06:41] LABS: CALCIUM, SERUM 8.8 mg/dL (8.5-10.1); CREATININE 0.8 mg/dL (0.6-1.3); POTASSIUM 4.5 mmol/L (3.5-5.1)
--- NOTE | 2019-03-25 06:41 | NUR ---
MS RN NOTES PATIENT IN BED, ASLEEP WITH INTERMITTENT SLEEP, ALERT AND ORIENTED X 3. BREATHING EVEN AND UNLABORED ON HI FLOW 60L. SHOWS NO SIGNS OF ACUTE RESPIRATORY DISTRESS, NO ACUTE PAIN. IV ON RFA #18G IS CLEAN DRY AND INTACT. SHOWS NO SIGNS OF INFILTRATION, NO REDNESS. ALL DUE MEDICATIONS GIVEN. SAFETY PRECAUTIONS IN PLACE. BED IN LOWEST POSITION, LOCKED, AND CALL LIGHT KEPT WITHIN REACH. WILL ENDORSE TO ONCOMING NURSE.
[2019-03-25] MEDS: BLOOD SUGAR DIAGNOSTIC 1 EACH STRIP VI SCH ×4 (07:59→21:08)
[2019-03-25 08:00] VITALS: BP 115/67
[2019-03-25] MEDS: methylPREDNISolone SOD SUCC 40 MG/ML VIAL IV SCH ×4 (08:02→17:52)
[2019-03-25] MEDS: AMLODIPINE BESYLATE 5 MG TABLET PO SCH (08:02)
[2019-03-25] MEDS: ASPIRIN EC 81 MG TABLET.DR PO SCH (08:02)
[2019-03-25] MEDS: FLUTICASONE PROPIONATE 16 GM BOTTLE NS SCH ×2 (08:04→17:52)
[2019-03-25] MEDS ORDERED: IV NS 0.9% 250 ML IV ONE (10:49)
[2019-03-25] MEDS ORDERED: CT SWABBABLE VALVE TRANS SET 1 EA INFUS.SET MC ONE (10:49)
[2019-03-25] MEDS ORDERED: IOHEXOL-350 100 ML VIAL IV ONE (10:49)
--- NOTE | 2019-03-25 12:00 | NUR ---
PATIENT RESTING IN ROOM- NO COMPLAINTS OR CONCERNS - FAMILY BEDSIDE- SAFETY PRECAUTIONS IN PLACE- WILL CONTINUE TO MONITOR REPORT AND RECORD
--- NOTE | 2019-03-25 12:00 | NUR ---
PATIENT RESTING IN ROOM- NO COMPLAINTS OR CONCERNS - FAMILY BEDSIDE- SAFETY PRECAUTIONS IN PLACE- WILL CONTINUE TO MONITOR REPORT AND RECORD
--- NOTE | 2019-03-25 13:04 | NUR ---
03/25/2019 aKrley Devine confirmed that the individuals listed below are able to get info on patient- have to ID name and Alyson Esparza Will endorse to the staff
[2019-03-25] MEDS: GLUCERNA SHAKE 237 ML CAN PO SCH ×2 (13:10→17:52)
[2019-03-25] MEDS: INSULIN REGULAR, HUMAN 100 UNIT/ML 3 ML VIAL SQ PRN ×2 (15:23→17:49)
[2019-03-25 16:00] VITALS: BP 127/78
--- NOTE | 2019-03-25 16:00 | NUR ---
patient resting in room- no complaints or concerns- patient has been titrating thru out the day with RN- Safety precautions in place- will continue to monitor report and record
--- NOTE | 2019-03-25 18:15 | NUR ---
patient resting in room- no complaints or concerns- patient has been titrating thru out the day with RN- Safety precautions in place- will continue to monitor report and record- rn poc is supportive - will endorse care to pm rn
--- NOTE | 2019-03-25 19:30 | NUR ---
MS RN OPENING NOTE RECEIVED PATIENT IN BED. A/O X4. ON OXYGEN 10L/MIN VIA SIMPLE MASK. O2 SAT 96%. RESPIRATIONS ARE EVEN AND UNLABORED. NO S/S SOB NOTED. DENIES PAIN AT THIS TIME. IN NO APPARENT DISTRESS. IV ACCESS IN RAC#20 PATENT AND SALINE LOCKED. BED IS LOW AND LOCKED,HOB ELEVATED IN HIGH FOWLERS, SIDE RAILS UP X2, BED ALARM ON. CALL LIGHT WITHIN REACH. FAMILY AT BEDSIDE. WILL CONTINUE TO MONITOR.
[2019-03-25 20:00] VITALS: BP 138/74
[2019-03-25] MEDS: ENOXAPARIN SODIUM 40 MG/0.4 ML DISP.SYRIN SQ SCH (20:56)
[2019-03-25] MEDS: *INSULIN REGULAR(HUMULIN R)HUM 100 UNIT/ML VIAL SQ PRN (21:12)
[2019-03-25 22:00] VITALS: BP 138/74
--- NOTE | 2019-03-26 01:03 | NUR ---
RT Pt tolerating night time BiPAP well. jennyn given inline. Addendum: 03/26/19 at 0104 by HERB DURHAM RT Amended: Links added.
[2019-03-26] MEDS: IPRATROPIUM NEB FS 0.5 MG/2.5 ML AMPUL.NEB NEB SCH ×6 (02:58→23:08)
[2019-03-26] MEDS: ALBUTEROL HALF STRENGTH 1.25 MG/3 ML VIAL.NEB NEB SCH ×6 (02:58→23:08)
[2019-03-26 04:00] VITALS: BP 101/63
--- NOTE | 2019-03-26 06:00 | NUR ---
MS RN CLOSING NOTE PATIENT IN BED. REMAINS A/O X4. ON BIPAP THROUGHOUT NIGHT. RESPIRATIONS ARE EVEN AND UNLABORED. NO SOB NOTED. NO C/O PAIN THROUGHOUT NIGHT.NO DISTRESS NOTED. IV ACCESS MAINTAINED IN RAC#20 PATENT AND SALINE LOCKED. BED REMAINS LOW AND LOCKED,HOB ELEVATED IN HIGH FOWLERS, SIDE RAILS UP X2, BED ALARM ON. CALL LIGHT WITHIN REACH. WILL ENDORSE TO NEXT SHIFT.
[2019-03-26 06:21] LABS: BASOPHILS # (AUTO) 0.2 /CMM (0.0-0.2); BASOPHILS % (AUTO) 0.8 % (0.0-2.0); HEMATOCRIT 45 % (39-51); HEMOGLOBIN 14.7 g/dL (13.5-17.5); LYMPHOCYTES # (AUTO) 0.3 /CMM (0.8-4.8); LYMPHOCYTES % (AUTO) 1.5 % (20.0-44.0); MEAN CORPUSCULAR HGB CONC 33 g/dl (31.0-36.0); MEAN CORPUSCULAR VOLUME 87 fL (80-96); MONOCYTES # (AUTO) 0.8 /CMM (0.1-1.30); MONOCYTES % (AUTO) 4.4 % (2.0-12.0); NEUTROPHILS # (AUTO) 17.2 /CMM (1.8-8.9); NEUTROPHILS % (AUTO) 93.3 % (43.0-81.0); PLATELET COUNT (AUTO) 363 /CMM (150-450); WHITE BLOOD COUNT (AUTO) 18.4 K/uL (4.3-11.0)
[2019-03-26 06:55] LABS: CALCIUM, SERUM 9.4 mg/dL (8.5-10.1); CREATININE 1.1 mg/dL (0.6-1.3); POTASSIUM 4.3 mmol/L (3.5-5.1)
[2019-03-26 08:00] VITALS: BP 113/77
[2019-03-26] MEDS: GLUCERNA SHAKE 237 ML CAN PO SCH ×3 (08:05→16:53)
[2019-03-26] MEDS: *INSULIN REGULAR(HUMULIN R)HUM 100 UNIT/ML VIAL SQ PRN ×2 (08:06→11:13)
[2019-03-26] MEDS: BLOOD SUGAR DIAGNOSTIC 1 EACH STRIP VI SCH ×4 (08:08→23:29)
[2019-03-26] MEDS: ASPIRIN EC 81 MG TABLET.DR PO SCH (08:40)
[2019-03-26] MEDS: methylPREDNISolone SOD SUCC 40 MG/ML VIAL IV SCH ×3 (08:40→16:53)
[2019-03-26] MEDS: FLUTICASONE PROPIONATE 16 GM BOTTLE NS SCH ×2 (08:41→16:53)
[2019-03-26] MEDS: AMLODIPINE BESYLATE 5 MG TABLET PO SCH (08:41)
[2019-03-26 10:00] VITALS: BP 113/68
[2019-03-26] MEDS ORDERED: PIPERACILLIN /TAZOBACTAM 3.375 G in IV D5W 50 ML IV ONE (12:00)
--- NOTE | 2019-03-26 14:00 | NUR ---
MS/RN NOTES SPOKE TO DR. FLORES REGARDING THE SACRAL SKIN ISSUE OF THE PATIENT WITH ORDERS TO PROVIDED [employer] MATRESS AND WOUND CONSULT IN AM. MEPILEX WAS ALSO PLACED ON THE AREA FOR PROTECTION. ENCOURAGE THE PATIENT TO TURN SIDE TO SIDE TO RELIEVED PRESSURE. ALL NEEDS ANTICIPATED. CALL LIGHT WITHIN REACHED. BED LOCKED AND IN LOWEST POSITION. SAFETY MAINTAINED. WILL CONTINUE TO MONITOR CLOSELY.
[2019-03-26 16:00] VITALS: BP 143/73
--- NOTE | 2019-03-26 16:30 | NUR ---
MS/RN NOTES INCIDENT REPORT WAS DONE REGARDING THE SKIN ISSUE OF THE PATIENT. ID: [id number]. PATIENT CONTINUES TO REMAIN IN STABLE CONDITION. WILL CONTINUE TO MONITOR CLOSELY.
[2019-03-26] MEDS: PIPERACILLIN /TAZOBACTAM 3.375 G in IV D5W 100 ML IV SCH (16:53)
[2019-03-26] MEDS: INSULIN REGULAR, HUMAN 100 UNIT/ML 3 ML VIAL SQ PRN (16:57)
--- NOTE | 2019-03-26 19:14 | NUR ---
MS/RN CLOSING NOTES PATIENT CONTINUES TO REMAIN IN STABLE CONDITION THROUGHOUT THE SHIFT. PROVIDED COMFORT AND SAFETY. NO PAIN OR ACUTE DISTRESS AT THIS TIME. RESPIRATION EVEN AND UNLABORED. TOLERATING THE NASAL CANNULA WELL. SKIN IS DRY WARM TO TOUCH. PATIENT ABLE TO TOLERATE MEALS AND MEDS WELL. ALL NEEDS ANTICIPATED. CALL LIGHT WITHIN REACHED. BED LOCKED AND IN LOWEST POSITION. SAFETY MAINTAINED. WILL CONTINUE TO MONITOR CLOSELY. ENDORSED TO PM NURSE FOR JASON.
--- NOTE | 2019-03-26 19:40 | NUR ---
RN NOTES RECEIVED AWAKE ALERT ORIENTED X4, VISITORS IN THE ROOM AT THIS TIME, INFORMED PATIENT THAT WE WILL DO SKIN ASSESSMENT AND TAKE A PHOTO FOR ANY SKIN ISSUES, PATIENT REFUSED SKIN ASSESSMENT AT THIS TIME, WILL FOLLOW UP, SAFETY MEASURES IN PLACE, ASPIRATION PRECAUTION EMPHASIZE, CALL LIGHT WITHIN EASY REACH, IV INTACT AND PATENT, SATING 92% AT 3 LPM VIA NASAL CANNULA. WILL MONITOR ACCORDINGLY.
[2019-03-26 20:00] VITALS: BP 153/83
[2019-03-26] MEDS: ENOXAPARIN SODIUM 40 MG/0.4 ML DISP.SYRIN SQ SCH (21:18)
[2019-03-26 22:55] VITALS: BP 153/83
--- NOTE | 2019-03-26 22:55 | NUR ---
RN NOTES NOTED IV ACCESS PULLED OUT, RE INSERTED A NEW PERIPHERAL IV LINE ON HIS RIGHT UPPER ARM G#22. DRESSING INTACT AND PATENT. SALINE LOCKED FOR ANTIBIOTIC THERAPY. WILL MONITOR.
[2019-03-27] MEDS: PIPERACILLIN /TAZOBACTAM 3.375 G in IV D5W 100 ML IV SCH ×3 (00:23→18:16)
[2019-03-27] MEDS: IPRATROPIUM NEB FS 0.5 MG/2.5 ML AMPUL.NEB NEB SCH ×6 (02:42→23:35)
[2019-03-27] MEDS: ALBUTEROL HALF STRENGTH 1.25 MG/3 ML VIAL.NEB NEB SCH ×6 (02:42→23:35)
[2019-03-27 04:00] VITALS: BP 118/64
--- NOTE | 2019-03-27 06:02 | NUR ---
PT TAKEN OFF BIPAP AND PLACED ON 3L NC. RN NOTIFIED. O2 SAT 92%.
--- NOTE | 2019-03-27 06:30 | NUR ---
RN NOTES ALL NEEDS ATTENDED AND MET, ABLE TO REST AND SLEPT AT INTERVALS, REPOSITIONED FROM SIDE TO SIDE EVERY 2 HOURS, O2 SATURATION MAINTAINED BETWEEN 88% - 93%, SAFETY MEASURES IN PLACED, ASPIRATION PRECAUTION EMPHASIZED, CALL LIGHT WITHIN EASY REACH, SEEN BY WOUND NURSE AARONRN SKIN ISSUE ON SACRAL AREA MEASURED AND VERIFIED 8.5 CM X 5.5 CM X 0.1 CM. RECOMMENDS ISOFLEX, WILL ENDORSE TO AM NURSE FOR CONTINUITY OF CARE.
--- NOTE | 2019-03-27 07:18 | NUR ---
WOUND CARE CONSULT PATIENT SEEN AND SKIN INTEGRITY EVALUATED. PATIENT PRESENTS WITH DTI IN EVOLUTION. SEE PCS FOR TODAY FOR ORIENTAL RUG STRETCHER ASSESSMENT. PATIENT WITH KATHERYN AT 23, ABLE TO MOVE ALL EXTREMITIES, BUT HAS BEEN SITTING UP RIGHT IN BED DUE TO SHORTNESS OF BREATH WHEN HE LAYS FLAT. WOUND CARE ENCOURAGED PATIENT TO TURN AND REPOSITION AT LEAST EVERY 2 HOURS AND HE WAS ABLE TO DEMONSTRATE SELF TURNING TO ME. PATIENT ADMITS TO ME THAT HE OFTEN REFUSES TURNING AND REPOSITIONING HE GETS ANXIOUS WHEN "I FEEL I CAN'T BREATH." PATIENT IS ABLE TO USE URINAL AT THE BEDSIDE. RECOMMEND ISOFLEX LOW AIRLOSS SPECIALTY BED FOR TREATMENT AND IS NOW ON ORDER. WOUND CARE WILL CONTINUE TO MONITOR. MD IN AGREEMENT WITH TREATMENT RECOMMENDATIONS AND PLAN OF CARE. Addendum: 03/27/19 at 0725 by AARON BEAULIEU WNDNU Amended: Links added.
[2019-03-27 08:00] VITALS: BP 131/75
--- NOTE | 2019-03-27 08:00 | NUR ---
MS RN AM NOTES RECEIVED AWAKE ALERT ORIENTED X4, DENIES ANY DISTRESS OR SOB. SAFETY MEASURES IN PLACE, ASPIRATION PRECAUTION EMPHASIZE, CALL LIGHT WITHIN EASY REACH, IV INTACT AND PATENT, SATING 90-94% AT 4LPM VIA NASAL CANNULA. WILL MONITOR ACCORDINGLY.
[2019-03-27] MEDS: BLOOD SUGAR DIAGNOSTIC 1 EACH STRIP VI SCH ×4 (09:20→22:33)
[2019-03-27] MEDS: methylPREDNISolone SOD SUCC 40 MG/ML VIAL IV SCH ×3 (09:24→18:16)
[2019-03-27] MEDS: GLUCERNA SHAKE 237 ML CAN PO SCH ×3 (09:24→17:00)
[2019-03-27] MEDS: ASPIRIN EC 81 MG TABLET.DR PO SCH (09:25)
[2019-03-27] MEDS: AMLODIPINE BESYLATE 5 MG TABLET PO SCH (09:25)
[2019-03-27] MEDS: FLUTICASONE PROPIONATE 16 GM BOTTLE NS SCH ×2 (09:26→18:24)
[2019-03-27] MEDS: INSULIN GLARGINE, 100 UNIT/ML CARTRIDGE SQ SCH ×2 (09:35→22:33)
[2019-03-27] MEDS: INSULIN REGULAR, HUMAN 100 UNIT/ML 3 ML VIAL SQ PRN ×2 (09:41→12:48)
[2019-03-27 10:00] VITALS: BP 131/78
--- NOTE | 2019-03-27 14:15 | NUR ---
PER PT,HE MADE BM ON 03/23/2019.
[2019-03-27 16:00] VITALS: BP 128/76
--- NOTE | 2019-03-27 19:10 | NUR ---
RN OPENING NOTE RECEIVED PATIENT IN BED RESTING WITH HOB ELEVATED. A&O X4. ABLE TO MAKE NEEDS KNOWN. VISITOR AT BEDSIDE. ON O2 5L VIA NC. IN NO APPARENT DISTRESS NOTED. BED IS LOWERED TO LOW POSITION FOR SAFETY. CALL LIGHT IS WITHIN REACH. WILL CONTINUE TO MONITOR.
--- NOTE | 2019-03-27 20:17 | NUR ---
RCVD PT ON 4L NC. PLACED PT ON BIPAP 15/ 5 ,RATE 15 AND FIO2 40%. NO RESPIRATORY DISTRESS NOTED AT THIS TIME. BREATHING TX GIVEN PER MD'S ORDER. NO ADVERSE REACTION NOTED. WILL CONTINUE TO MONITOR PT P/O THE SHIFT.
[2019-03-27] MEDS: ENOXAPARIN SODIUM 40 MG/0.4 ML DISP.SYRIN SQ SCH (20:43)
[2019-03-27 22:00] VITALS: BP 160/78
[2019-03-28] MEDS: PIPERACILLIN /TAZOBACTAM 3.375 G in IV D5W 100 ML IV SCH ×3 (00:40→17:13)
[2019-03-28] MEDS: ALBUTEROL HALF STRENGTH 1.25 MG/3 ML VIAL.NEB NEB SCH ×6 (03:21→23:35)
[2019-03-28] MEDS: IPRATROPIUM NEB FS 0.5 MG/2.5 ML AMPUL.NEB NEB SCH ×6 (03:22→23:35)
[2019-03-28 04:57] VITALS: BP_SYST 112; BP_SYST 160; BP_DIAS 72; BP_DIAS 78
[2019-03-28 06:19] LABS: BASOPHILS # (AUTO) 0.1 /CMM (0.0-0.2); BASOPHILS % (AUTO) 0.9 % (0.0-2.0); HEMATOCRIT 48 % (39-51); HEMOGLOBIN 15.7 g/dL (13.5-17.5); LYMPHOCYTES # (AUTO) 0.3 /CMM (0.8-4.8); LYMPHOCYTES % (AUTO) 1.6 % (20.0-44.0); MEAN CORPUSCULAR HGB CONC 32 g/dl (31.0-36.0); MEAN CORPUSCULAR VOLUME 87 fL (80-96); MONOCYTES # (AUTO) 0.6 /CMM (0.1-1.30); MONOCYTES % (AUTO) 3.8 % (2.0-12.0); NEUTROPHILS # (AUTO) 14.7 /CMM (1.8-8.9); NEUTROPHILS % (AUTO) 93.7 % (43.0-81.0); PLATELET COUNT (AUTO) 318 /CMM (150-450); RED BLOOD CELL COUNT(AUTO) 5.53 MIL/uL (4.5-6.0); WHITE BLOOD COUNT (AUTO) 15.7 K/uL (4.3-11.0)
[2019-03-28 06:43] LABS: CALCIUM, SERUM 8.9 mg/dL (8.5-10.1); CREATININE 1.1 mg/dL (0.6-1.3)
--- NOTE | 2019-03-28 06:47 | NUR ---
RN CLOSING NOTE PATIENT IN BED RESTING WITH HOB ELEVATED. A&O X4. BREATHING EVEN AND NON LABORED. ON 5L O2 VIA NC. BIBPAP APPLIED DURING THE NIGHT AND TOLERATED WELL. O2 SAT REMAINED BETWEEN 90-92%. ALL DUE MEDS GIVEN ORDERED. SACRAL WOUND DRESSING CHANGE DONE. PATIENT IS KEPT CLEAN, DRY, AND COMFORTABLE. ALL NEEDS ATTENDED AND MET. WILL ENDORSE TO AM SHIFT RN FOR CONTINUATION OF CARE.
--- NOTE | 2019-03-28 07:00 | NUR ---
MS RN NOTES OPENING PATIENT IN BED A/O X4 COOPERATIVE AWAKE. NO PAIN OR DISCOMFORT NOTED AT THIS TIME. CALL LIGHT WITHIN REACH BED AT THE LOWEST POSITION LOCKED. WILL CONTINUE TO MONITOR.
[2019-03-28 08:00] VITALS: BP 138/75
[2019-03-28] MEDS: BLOOD SUGAR DIAGNOSTIC 1 EACH STRIP VI SCH ×4 (08:53→21:55)
[2019-03-28] MEDS: ASPIRIN EC 81 MG TABLET.DR PO SCH (09:13)
[2019-03-28] MEDS: methylPREDNISolone SOD SUCC 40 MG/ML VIAL IV SCH ×3 (09:13→17:13)
[2019-03-28] MEDS: AMLODIPINE BESYLATE 5 MG TABLET PO SCH (09:18)
[2019-03-28] MEDS: FLUTICASONE PROPIONATE 16 GM BOTTLE NS SCH ×2 (09:20→17:15)
[2019-03-28] MEDS: GLUCERNA SHAKE 237 ML CAN PO SCH ×3 (09:20→17:14)
[2019-03-28 09:49] LABS: ABG OXYGEN SATURATION 88.2 % (92.0-98.5); ABG PCO2 47.9 mmHg (35.0-45.0); ABG PH 7.472 (7.350-7.450); ABG PO2 51.6 mmHg (75.0-100.0); AaDO2 178.5 mmHg; COHb 0.5 % (0.5-1.5); MetHb 0.4 % (0.0-1.5); O2Hb 87.4 % (94.0-97.0); SITE, ABG Right Radial; VENT MODE, BG NASAL CANNULA
[2019-03-28 10:00] VITALS: BP 138/75
[2019-03-28] MEDS: INSULIN REGULAR, HUMAN 100 UNIT/ML 3 ML VIAL SQ PRN ×2 (12:43→17:51)
[2019-03-28 16:00] VITALS: BP 114/72
--- NOTE | 2019-03-28 19:15 | NUR ---
MS RN NOTES RECEIVED PT IN BED AWAKE AND ABLE TO MAKE NEEDS KNOWN. PT A/O X3. RESPIRATIONS EVEN AND UNLABORED WITH NO S/S OF ACUTE DISTRESS OR SOB NOTED. PT PT ON NOC-BIPAP AT THIS TIME. NO COMPLAINTS OF PAIN AT THIS TIME. PT NOTED WITH JORGE LUIS #22G PATENT AND INTACT AND SL. SAFETY MEASURES IN PLACE WITH BED IN LOWEST LOCKED POSITION WITH SIDE RAILS UP X2. CALL LIGHT WITHIN REACH. WILL CONTINUE TO MONITOR.
--- NOTE | 2019-03-28 19:34 | NUR ---
MS RN NOTES PATIENT IN BED A/OX4 COMFORTABLE IN BED. NO SOB OR DISCOMFORT NOTED. RACING SECRETARY CARLOS PROVIDED A BIPAPP ORDER PAPER , ENDORSED TO BOWL ATTENDANT NURSE TO HAVE THE DR PHAN SIGN IT FOR TOMORROW. ALL NEEDS ATTENDED. ALL MEDICATION ADMINISTRATED . BED AT THE LOWEST POSITION LOCKED. CALL LIGHT WITHIN REACH , ENDORSED TO BOWL ATTENDANT NURSE FOR JASON.
[2019-03-28] MEDS: ENOXAPARIN SODIUM 40 MG/0.4 ML DISP.SYRIN SQ SCH (21:56)
[2019-03-28 22:00] VITALS: BP 120/78
[2019-03-29] VITALS (7 sets, daily range): BP systolic 83–148; BP diastolic 45–99
[2019-03-29] MEDS: PIPERACILLIN /TAZOBACTAM 3.375 G in IV D5W 100 ML IV SCH ×2 (01:24→08:54)
[2019-03-29] MEDS: ALBUTEROL HALF STRENGTH 1.25 MG/3 ML VIAL.NEB NEB SCH ×5 (03:17→19:29)
[2019-03-29] MEDS: IPRATROPIUM NEB FS 0.5 MG/2.5 ML AMPUL.NEB NEB SCH ×5 (03:18→19:28)
--- NOTE | 2019-03-29 06:51 | NUR ---
MS RN NOTES PT REFUSED TO BE CLEANED THROUGHOUT SHIFT. MULTIPLE ATTEMPTS WERE TRIED.
--- NOTE | 2019-03-29 06:52 | NUR ---
MS RN NOTES PT IN BED AWAKE AND ABLE TO MAKE NEEDS KNOWN. PT A/O X3. RESPIRATIONS EVEN AND UNLABORED WITH NO S/S OF ACUTE DISTRESS OR SOB NOTED THROUGHOUT SHIFT. PT ON HIGHFLO O2. NO COMPLAINTS OF PAIN AT THIS TIME. PT NOTED WITH JORGE LUIS #22G PATENT AND INTACT AND SL. SAFETY MEASURES IN PLACE WITH BED IN LOWEST LOCKED POSITION WITH SIDE RAILS UP X2. CALL LIGHT WITHIN REACH. [facility]
--- NOTE | 2019-03-29 07:20 | NUR ---
RN OPENING NOTE: PATIENT RECEIVED IN BED. AWAKE, ALERT AND ORIENTED X4. ABLE TO MAKE NEEDS KNOWN. PATIENT ON NOCTURNAL BIPAP AT 50% WITH HR IN 120S AND SATURATION AT 91%. FOR REEVALUATION AND ENDROSED BY CALENDER WORKER HELPER TO INFORM DR. DOWNING ABOUT SITUATION. NO SOB AND NO RESPIRATORY DISTRESS NOTED. NO PAIN NOTED. CALL LIGHT IN REACH. BED LOCKED, LOW AND AT SEMI-MALIK'S POSITION. SIDE RAILS UPX3. SAFETY ENSURED AND OBSERVED. WILL CONTINUE TO MONITOR.
[2019-03-29] MEDS: GLUCERNA SHAKE 237 ML CAN PO SCH ×3 (08:43→17:12)
[2019-03-29] MEDS: BLOOD SUGAR DIAGNOSTIC 1 EACH STRIP VI SCH ×3 (08:43→17:12)
[2019-03-29] MEDS: AMLODIPINE BESYLATE 5 MG TABLET PO SCH (08:53)
[2019-03-29] MEDS: ASPIRIN EC 81 MG TABLET.DR PO SCH (08:53)
[2019-03-29] MEDS: methylPREDNISolone SOD SUCC 40 MG/ML VIAL IV SCH ×3 (08:53→17:11)
[2019-03-29] MEDS: FLUTICASONE PROPIONATE 16 GM BOTTLE NS SCH ×2 (08:54→17:12)
[2019-03-29] MEDS: INSULIN REGULAR, HUMAN 100 UNIT/ML 3 ML VIAL SQ PRN ×3 (09:19→17:13)
--- NOTE | 2019-03-29 11:00 | NUR ---
RN NOTE: DR. DOWNING AND DR. FLORES MADE ROUNDS AND SAW THE PATIENT. PATIENT CURRENTLY IN HIGH FLOW O2 AT 50% WITH SATURATION AT 88-90%
--- NOTE | 2019-03-29 17:00 | NUR ---
RN NOTE: DR. FLORES AND CHANG WERE CONTACTED DUE TO PATIENT HAVING PROLONGED EPISODE OF DESATURATION AT 80%. PATIENT AWAKE, ALERT AND ORIENTED X4. ABLE TO MAKE NEEDS KNOWN. NO PAIN REPORTED. CURRENTLY ON BIPAP AT 50%. Addendum: 03/29/19 at 2033 by WANG GUNN RN PRINCESS SCHUMACHER AT BEDSIDE AND AWARE OF THE SITUATION.
--- NOTE | 2019-03-29 18:00 | NUR ---
RN NOTE: ABG ORDERED AND DR. DOWNING AND DR. FLORES WERE INFORMED OF THE RESULTS. PATIENT CURRENTLY ON BIPAP AT 100% WITH SATURATION AT 88%. ICU TRANSFER AND MISCELLANEOUS ORDERS GIVEN BY DR. DOWNING. NOTED AND CARRIED OUT. Addendum: 03/29/19 at 2033 by WANG GUNN RN PRINCESS SCHUMACHER AT BEDSIDE AND AWARE OF THE SITUATION.
--- NOTE | 2019-03-29 18:05 | NUR ---
RN NOTE: RT INFORMED ABOUT ABG ORDERS TO BE DONE 1 HOUR AFTER SETTINGS ARE CHANGED BASED ON DR. DOWNING'S ORDER. WILL INFORM RECEIVING NURSE ABOUT ORDERS WELL.
--- NOTE | 2019-03-29 19:00 | NUR ---
RN NOTE: PATIENT REPORTED CHEST AND EPIGASTRIC PAIN. CRUSHING AND AT 09/15. DR. FLORES INFORMED OF SITUATION WITH ORDERS GIVEN FOR TROPONIN Q4H X3. PROTONOX 40MG IV QDAILY AND EKG. NOTED AND CARRIED OUT. Addendum: 03/29/19 at 2034 by WANG GUNN RN PRINCESS SCHUMACHER AT BEDSIDE AND AWARE OF THE SITUATION.
[2019-03-29] MEDS ORDERED: PANTOPRAZOLE 40 MG VIAL IV SCH (20:00)
--- NOTE | 2019-03-29 20:00 | NUR ---
ICU/RN OPENING NOTE RECEIVED PATIENT FROM [place], REPORT GIVEN BY WANG. PATIENT A/O X2 ON BI-PAP MACHINE CURRENTLY SATTING AT 81%. PATIENT ON THE MONITOR WAS SINUS TACHY WITH HR IN THE 110'S. PATIENT COMPLAINT OF DIFFICULTY BREATHING. PATIENT LUNGS WITH BILATERAL BREATH SOUNDS. DAUGHTER ENDY AT BEDSIDE. PATIENT HAS IV ACCESS ON THE RIGHT #22G PATENT AND FLUSHING. BP IS MAINTAINED. WILL CONTINUE TO MONITOR PATIENT THROUGHOUT SHIFT.
--- NOTE | 2019-03-29 20:15 | NUR ---
DRILLER AND REAMER NOTE: ENDORSE TO [facility] AND PATIENT BROUGHT TO ICU. NO RESPIRATORY DISTRESS NOTED. PATIENT IN AWAKE, ALERT AND ORIENTED X4.
--- NOTE | 2019-03-29 20:35 | NUR ---
ICU/NOTE PAIGED APPELLATE LAW CLERK DR FLORES. PATIENT CONTINUOS TO DESATURATE WITH 75% SP02. ABG'S ORDERED AND REPORTED TO DR. PER DR CARLIN PATIENT IS TO BE INTUBATED. WILL CALL ER FOR EMERGENCY INTUBATION. PATIENT BP CURRENTLY AT 69/46 WILL INTERVENE BEFORE INTUBATION. 2044>>>BP CUFF ADJUSTED PATIENT BP HAS ELEVATED TO 96/45. WILL CONTINUE TO MONITOR 2049>>>PATIENT IS JUST INTUBATED WITH AC 16, TV 400, FI02 100% WITH NO PEEP. CURRENTLY TOLERATING WITH 93% SATURATION. PATIENT IS SINUS [place]TT[place] IN 50'S WITH HR DECREASING. CRASH CART AT BEDSIDE FOR PRECAUTIONS. 2099 PATIENT HR INCREASED TO 80'S. WILL CONTINUE TO MONITOR. Addendum: 03/30/19 at 0157 by ADELFO GARRISON RN 2049>>> PATIENT INTUBATED WITH 7.5 AND @ 24CM LIP BILATERAL BREATH SOUNDS NOTED. CHEST RISE NOTED. PATIENT TOLERATING VENT WITH NO SOB.
[2019-03-29] MEDS ORDERED: PROPOFOL 100 ML ONE (21:14)
[2019-03-29] MEDS ORDERED: NOREPINEPHRINE 8 MG in IV D5W 500 ML IV PRN (21:30)
[2019-03-29] MEDS ORDERED: PROPOFOL 100 ML IV PRN (21:30)
--- NOTE | 2019-03-29 21:31 | NUR ---
RT Pt was intubated with ETT 7.5 @24CM Lip due to desaturation and IWB while on Biapap. ETT patent and secure via anchor fast. [facility] with noted setting per md orders. Bilateral B/S noted, Bilateral chest rise/fall noted, and positive Co2 color change noted. Vent connected to red outlet. Pt tolerate setting well, no sob or distress noted. Will continue to monitor. Addendum: 03/29/19 at 2137 by EDA VALENCIA RT Amended: Links added.
--- NOTE | 2019-03-29 22:25 | NUR ---
ICU/RN ORDERS RECEIVED FOR DIPRIVAN, AND LEVOPHED. PATIENT SBP IS IN THE50'S. PATIENT DESATURATING WITH 02 AT 74%. WILL CONTACT WASH OPERATOR MATERIALS BUYER FOR NEW ORDERS. 4>>>PAIGED WASH OPERATOR MATERIALS BUYER REGARDING PATIENT DESATURATING STATUS. DR WEBSTER ORDERED NEW VENT SETTINGS. WITH AC 20, TV 500, FI02 100%, WITH PEEP OF 8. WILL CONTINUE TO MONITOR FOR CHANGES. 5>>> PATIENT HR DECREASING TO 40'S. CRASH CART AT BEDSIDE FOR PRECAUTIONS.
[2019-03-29] MEDS ORDERED: NOREPINEPHRINE 4 MG/4 ML AMPUL IV ONE (22:36)
--- NOTE | 2019-03-29 22:38 | NUR ---
RT EKG DONE AT THIS TIME DUE TO PATIENT BEING TRANSFERRED TO ICU AND PATIENT HAD RESPIRATORY DISTRESS IN THE ICU LEADING TO THE PATIENT BEING INTUBATED. DANTE GUAJARDO. Addendum: 03/29/19 at 2242 by ARELY MARISCAL RT Amended: Links added.
--- NOTE | 2019-03-29 22:48 | NUR ---
ICU/RN CODE BLUE CALLED ON PATIENT.
[2019-03-29] MEDS ORDERED: FEE EMEERGENCY 1 MIN EA MC ONE (23:00)
[2019-03-29] MEDS ORDERED: SUCCINYLCHOLINE CHLORIDE 20 MG/ML VIAL IV ONE (23:00)
[2019-03-29] MEDS ORDERED: ETOMIDATE 2 MG/ML VIAL IV ONE (23:00)
[2019-03-29] MEDS ORDERED: CALCIUM CHLORIDE 1,000 MG/10 ML DISP.SYRIN ONE (23:00)
[2019-03-29] MEDS ORDERED: EPINEPHRINE (1:10,000) SYRINGE 1 MG/10 ML DISP.SYRIN ONE (23:00)
--- NOTE | 2019-03-29 23:30 | NUR ---
ICU/RN CLOSING UPON ASSESSMENT FOUND PATIENT UNRESPONSIVE WITH PUPILS FIXED AND DILATED. RESPIRATIONS ABSENT. PERIPHERAL PULSES ABSENT. NO SIGNS OF LIFE NOTED. PATIENT AT 230. DR. FLORES WAS NOTIFIED AT 231, ADMITTING WAS NOTIFIED AT 230, TABLET REPAIR WAS NOTIFIED AT 230, FAMILY NOTIFIED AT 2305, PAPER TUBE CUTTER WAS CALLED AT 2345, [facility] WAS CALLED AT 2303.
== END 2019-03-29 23:01 | disposition expired | DRG 208 ==
LOC: ER 18:14 → ICU 20:30 → TELE-TD 03-19 18:00 → TELE1 03-20 08:10 → MEDSG1 03-21 11:05 → ICU 03-29 20:25
PROVIDERS: ADMIT Internal Medicine; ATTEND Internal Medicine
PROC: 5A09457 Assistance with Respiratory Ventilation, 24-96 Consecutive Hours, Continuous Positive Airway Pressure (ICD-10-PCS; principal; 2019-03-18)
PROC: 0BH18EZ Insertion of Endotracheal Airway into Trachea, Via Natural or Artificial Opening Endoscopic (ICD-10-PCS; 2019-03-29)
PROC: 5A12012 Performance of Cardiac Output, Single, Manual (ICD-10-PCS; 2019-03-29)
PROC: 5A1935Z Respiratory Ventilation, Less than 24 Consecutive Hours (ICD-10-PCS; 2019-03-29)
DX: J44.1 Chronic obstructive pulmonary disease with (acute) exacerbation (principal); J96.22 Acute and chronic respiratory failure with hypercapnia; J15.9 Unspecified bacterial pneumonia; E43 Unspecified severe protein-calorie malnutrition; Z68.1 Body mass index [BMI] 19.9 or less, adult; J44.0 Chronic obstructive pulmonary disease with (acute) lower respiratory infection; I10 Essential (primary) hypertension; Z87.01 Personal history of pneumonia (recurrent); E11.65 Type 2 diabetes mellitus with hyperglycemia; Z99.81 Dependence on supplemental oxygen; Z79.82 Long term (current) use of aspirin; F17.200 Nicotine dependence, unspecified, uncomplicated
CPT/HCPCS: 36415; 36600; 71045-TC; 71250-TC; 80048-TC; 80076-TC; 82803-TC; 82962-TC; 83735-TC; 83880; 84484-TC; 85025-TC; 87081-TC; 94760-TC; 94762-TC; 94799-TC; 97110-TC; 97112-TC; 97116-TC; 97530-TC; A6403; G0378; J0171; J0330; J1650; J1815; J2543; J2920; J2930; J3475; J3490; J7030; J7050; J7060; Q9967